=== PATIENT | male | born 1945 | race Two or more races ===

== ENCOUNTER 2017-08-13 07:23 | Day surgery (SDC) | payer MEDICARE, MEDICAID ==
[~2017-08-13] VITALS: Ht 165.1 cm; Wt 84.0 kg
[~2017-08-13 07:23] MED LIST: BUPIVACAINE/PF 0.5% ONE; DOXA4TAB3 PO; FURO80TA77 PO; GABA-826 PO; HEPARIN 1,000 UNITS/ML, 10ML ONE; HYDR-3237 PO; HYDR-3342 PO; INSU100C5 SQ-INSULIN; LIPA1CAP17 PO; LISI-167 PO; METH1TAB54 PO; METO-95 PO; PROTAMINE SULFATE 10 MG/ML, 5ML ONE; SAXA2.5T PO; THROMBIN 5,000 UNIT VIAL TP ONE
[2017-08-13] MEDS ORDERED: SODIUM CHLORIDE 0.9% 1,000 ML IV SCH (08:00)
[2017-08-13 08:03] VITALS: BP 127/85
[2017-08-13] MEDS ORDERED: PLEASE ENTER HEIGHT AND WEIGHT MC SCH (08:30)
[2017-08-13] MEDS ORDERED: MIDAZOLAM 1 MG/ML, 2ML ONE (09:14)
[2017-08-13] MEDS ORDERED: FENTANYL PF 100 MCG/2ML ONE (09:14)
[2017-08-13] MEDS ORDERED: PROPOFOL 10 MG/ML, 20ML ONE (09:34)
[2017-08-13] MEDS ORDERED: LIDOCAINE-MPF 2% ,5ML ONE (09:35)
[2017-08-13] MEDS ORDERED: WATER-INJECTION,STERILE 10 ML IV ONE (09:36)
[2017-08-13] MEDS ORDERED: CEFAZOLIN 1,000 MG ONE ×2 (09:36)
[2017-08-13] MEDS ORDERED: PHENYLEPHRINE 10 MG/ML ONE (09:37)
[2017-08-13] MEDS ORDERED: DEXAMETHASONE 4 MG/ML, 1ML ONE ×2 (10:14)
[2017-08-13] MEDS ORDERED: ONDANSETRON 2MG/ML, 2ML ONE ×2 (10:29)
[2017-08-13] MEDS ORDERED: METOCLOPRAMIDE 5 MG/ML, 2ML ONE (10:29)
[2017-08-13] MEDS ORDERED: KETOROLAC 30 MG/1 ML ONE (10:30)
== END 2017-08-13 12:45 ==
LOC: OUT 07:23
PROVIDERS: ATTEND Surgery
DX: E11.22 Type 2 diabetes mellitus with diabetic chronic kidney disease (principal); I12.0 Hypertensive chronic kidney disease with stage 5 chronic kidney disease or end stage renal disease; N18.6 End stage renal disease
CPT/HCPCS: 36415; 36821; 80047; 82962; 93005; J0690; J1100; J1644; J1885; J2250; J2370; J2405; J2704; J2720; J2765; J3010; J3490